=== PATIENT | male | born 2000 | race Two or more races ===

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

== ENCOUNTER 2021-05-08 05:26 | Emergency (ER) | payer OTHER ==
[~2021-05-08] VITALS: Ht 175.3 cm; Wt 77.1 kg
[2021-05-08] MEDS ORDERED: KETO10TA2 PO (11:22)
== END 2021-05-08 11:54 | disposition home or self-care (01) ==
LOC: ER 05:26
DX: S52.591A Other fractures of lower end of right radius, initial encounter for closed fracture (principal); S05.12XA Contusion of eyeball and orbital tissues, left eye, initial encounter; Y04.0XXA Assault by unarmed brawl or fight, initial encounter; Y93.89 Activity, other specified; Y92.89 Other specified places as the place of occurrence of the external cause; Y99.8 Other external cause status

== ENCOUNTER 2021-05-15 07:34 | Day surgery (SDC) | payer OTHER ==
[~2021-05-15 07:34] MED LIST: KETO10TA2 PO
[2021-05-15] MEDS ORDERED: CIPRO500 MG PO (18:37)
[2021-05-15] MEDS ORDERED: ALEVE220 M1 PO (18:37)
[2021-05-15] MEDS ORDERED: PERCOCET 5-3251 EACH PO (18:37)
== END 2021-05-15 21:30 | disposition home or self-care (01) ==
LOC: CIR.AMB 07:34
PROVIDERS: ATTEND Orthopaedic Surgery
DX: T84.84XA Pain due to internal orthopedic prosthetic devices, implants and grafts, initial encounter (principal); M97.8XXA Periprosthetic fracture around other internal prosthetic joint, initial encounter; S52.391D Other fracture of shaft of radius, right arm, subsequent encounter for closed fracture with routine healing; Z47.2 Encounter for removal of internal fixation device; Z20.822 Contact with and (suspected) exposure to COVID-19
CPT/HCPCS: 25515; C1776; 20680 ×5; 20902

== ENCOUNTER 2023-02-28 01:44 | Emergency (ER) | payer OTHER ==
[~2023-02-28] VITALS: Ht 175.3 cm; Wt 67.1 kg
[~2023-02-28 01:44] MED LIST changes: +ALEVE220 M1 PO; +CIPRO500 MG PO; +PERCOCET 5-3251 EACH PO
[2023-02-28] MEDS ORDERED: GENTAFAIR5 ML OP (03:04)
[2023-02-28] MEDS ORDERED: CLEAR EYES REDNE6 ML OP (03:04)
== END 2023-02-28 03:16 ==
LOC: ER 01:44
DX: S05.51XA Penetrating wound with foreign body of right eyeball, initial encounter (principal); V43.52XA Car driver injured in collision with other type car in traffic accident, initial encounter; Y93.89 Activity, other specified; Y92.413 State road as the place of occurrence of the external cause; S49.82XA Other specified injuries of left shoulder and upper arm, initial encounter; Z88.0 Allergy status to penicillin

== ENCOUNTER 2023-03-16 17:16 | Emergency (ER) | payer OTHER ==
[~2023-03-16] VITALS: Ht 167.6 cm; Wt 63.5 kg
[~2023-03-16 17:16] MED LIST changes: +CLEAR EYES REDNE6 ML OP; +GENTAFAIR5 ML OP
[2023-03-16] MEDS ORDERED: CEPACOL SORE T1 EAC1 PO (20:53)
[2023-03-16] MEDS ORDERED: ZYRTEC10 M3 PO (20:53)
[2023-03-16] MEDS ORDERED: MEDROLPACK PO (20:56)
== END 2023-03-16 21:17 | disposition home or self-care (01) ==
LOC: ER 17:16
DX: J30.9 Allergic rhinitis, unspecified (principal)

== ENCOUNTER 2025-05-05 22:20 | Emergency (ER) | payer OTHER ==
[~2025-05-05] VITALS: Ht 175.3 cm; Wt 75.3 kg
[~2025-05-05 22:20] MED LIST changes: +CEPACOL SORE T1 EAC1 PO; +MEDROLPACK PO; +ZYRTEC10 M3 PO
[2025-05-05] MEDS ORDERED: ORPHENADRINE CITRATE 30 MG/ML AMPUL IM ONE (23:45)
== END 2025-05-05 23:48 | disposition home or self-care (01) ==
LOC: ER 22:20
DX: S00.83XA Contusion of other part of head, initial encounter (principal); S00.93XA Contusion of unspecified part of head, initial encounter; V29.99XA Rider (driver) (passenger) of other motorcycle injured in unspecified traffic accident, initial encounter; Y93.89 Activity, other specified; Y92.413 State road as the place of occurrence of the external cause; Y99.9 Unspecified external cause status